=== PATIENT | male | born 1975 | race Caucasian/White ===

== ENCOUNTER 2019-05-16 04:45 | Observation (INO) | payer MEDICARE, MEDICAID ==
--- NOTE | 2019-05-16 06:10 | EDM.PDOC ---
ED HPI GENERAL MEDICAL PROBLEM - General Chief Complaint: Abdominal Pain Stated Complaint: ABDOMINAL PAIN Time Seen by Provider: 05/16/19 05:15 Source of Information: Reports: Patient History Limitations: Reports: No Limitations - History of Present Illness INITIAL COMMENTS - FREE TEXT/NARRATIVE: Pt is a 43 year old male presents to emergency room with severe abdominal pain which started at 2 AM today. Pt has his supper at 9 PM and went to bed.He woke up with severe abdominal pain around 2 am today and noted that his abdomen was bloated, so severe that he felt like his left lower quadrant hernia mesh was pushed. Since then he claims he has been burping very foul smelling burps on and off and feels nauseous. No vomiting. Pain has resolved since then gradually. Presently not in pain. No fever or chills. No heart burn, or dyspepsia. Pt claims that he has been fighting constipation for past 1 month now and he had taken bottle of Mag citrate last night. Onset: Today Onset Date: 05/16/19 Onset Time: 02:00 Location: Reports: Abdomen Quality: Reports: Ache Severity: Moderate Improves with: Reports: None Worsens with: Reports: None Associated Symptoms: Denies: Confusion, Chest Pain, Cough, Diaphoresis, Fever/ Chills, Headaches, Nausea/Vomiting, Rash, Seizure, Shortness of Breath, Syncope , Weakness - Related Data Allergies Allergy/AdvReac Type Severity Reaction Status Date / Time adalimumab [From Humira] Allergy Dizziness Verified 05/16/19 05:12 atenolol Allergy Swelling Verified 05/16/19 05:12 Iodinated Contrast Media Allergy Anaphylactic Verified 05/16/19 05:12 Shock doxycycline AdvReac Nausea Verified 05/16/19 05:12 rofecoxib [From Vioxx] AdvReac Mouth Sores Verified 05/16/19 05:12 Home Meds: Home Meds Albuterol [Ventolin HFA] 1 puff INH Q4HR PRN 07/30/16 [History] Fluticasone Propionate 1 spray TYRONE DAILY PRN 07/30/16 [History] Amitriptyline [Elavil] 20 mg PO QPM 08/02/18 [History] Fluconazole [Diflucan] 200 mg PO ASDIRECTED 08/02/18 [History] Folic Acid 1 mg PO DAILY 08/02/18 [History] Levothyroxine Sodium [Levoxyl] 50 mcg PO ASDIRECTED 08/02/18 [History] Montelukast Sodium 10 mg PO DAILY 08/02/18 [History] Acetaminophen/HYDROcodone [[place] 325-10 MG] 1 tab PO Q4H PRN tablet 08/04/18 [ Rx] Cholecalciferol (Vitamin D3) [Vitamin D3] 1,000 unit PO DAILY 05/16/19 [History] Cyanocobalamin (Vitamin B12) [Vitamin B12] 100 mcg PO DAILY 05/16/19 [History] Diltiazem HCl [Dilt-XR] 120 mg PO DAILY 05/16/19 [History] InFLIXimab [Remicade] 100 mg IV ASDIRECTED 05/16/19 [History] Ketorolac [Toradol] 10 mg PO TID PRN 05/16/19 [History] Methotrexate 0.6 ml IM WEEKLY 05/16/19 [History] Omeprazole 40 mg PO DAILY 05/16/19 [History] ZOLMitriptan [Zolmitriptan] 5 mg PO ASDIRECTED PRN 05/16/19 [History] diphenhydrAMINE HCl [Benadryl] 50 mg PO Q8H PRN 05/16/19 [History] Past Medical History HEENT History: Reports: Impaired Vision, Sinusitis Cardiovascular History: Reports: Afib, Other (See Below) Other Cardiovascular History: Linx through [facility] Respiratory History: Reports: Asthma, Pneumonia, Recurrent, SOB Gastrointestinal History: Reports: GERD, Other (See Below) Other Gastrointestinal History: hernia Musculoskeletal History: Reports: Fracture Other Musculoskeletal History: ankylosing spondylitis, right arm (has [place]) fractured right orbital , shattered sinus cavity, broken ribs Neurological History: Reports: Concussion, Migraines Endocrine/Metabolic History: Reports: Hypothyroidism, Vitamin D Deficiency Other Endocrine/Metabolic History: partial thyroidectomy due to cancer Oncologic (Cancer) History: Reports: None, Thyroid, Other (See Below) Other Oncologic History: knee Dermatologic History: Reports: Other (See Below) Other Dermatologic History: rash chronic - Infectious Disease History Infectious Disease History: Reports: Chicken Pox - Past Surgical History HEENT Surgical History: Reports: Adenoidectomy, Tonsillectomy, Other (See Below) Other HEENT Surgeries/Procedures: SHOSHONE-PAIUTE Cardiovascular Surgical History: Reports: None GI Surgical History: Reports: Hernia, Inguinal, Other (See Below) Other GI Surgeries/Procedures: Ulcerative colitis Endocrine Surgical History: Reports: Thyroidectomy Neurological Surgical History: Reports: None Musculoskeletal Surgical History: Reports: Other (See Below) Other Musculoskeletal Surgeries/Procedures:: 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 Denies : Black Stool, Hematemesis, Hematochezia, Vomiting : Denies: Dysuria, Flank Pain, Frequency Musculoskeletal: Denies: Joint Pain, Joint Swelling Skin: Denies: Bruising, Pruritis, Rash ED EXAM, GENERAL - Physical Exam Exam: See Below Exam Limited By: No Limitations General Appearance: Alert, WD/WN, No Apparent Distress Eye Exam: Bilateral Eye: EOMI, PERRL Ears: Normal External Exam, Normal Canal, Hearing Grossly Normal, Normal TMs Ear Exam: Bilateral Ear: Auricle Normal, Canal Normal, TM normal Nose: Normal Inspection, Normal Mucosa, No Blood Throat/Mouth: Normal Inspection, Normal Lips, Normal Teeth, Normal Gums, Normal Oropharynx, Normal Voice, No Airway Compromise Head: Atraumatic, Normocephalic Neck: Normal Inspection, Supple, Non-Tender, Full Range of Motion Respiratory/Chest: No Respiratory Distress, Lungs Clear, Normal Breath Sounds, No Accessory Muscle Use, Chest Non-Tender Cardiovascular: Normal Peripheral Pulses, Regular Rate, Rhythm, No Edema, No Gallop, No JVD, No Murmur, No Rub GI/Abdominal: Non-Tender, Distended (in the upper abdomen), Abnormal Bowel Sounds (hypoactive BS). No: Guarding, Rigid, Rebound, Mass Back Exam: Normal Inspection, Full Range of Motion, NT Extremities: Normal Inspection, Normal Range of Motion, Non-Tender, Normal Capillary Refill, No Pedal Edema Neurological: Alert, Oriented, CN II-XII Intact, Normal Cognition, Normal Gait, Normal Reflexes, No Motor/Sensory Deficits Course - Vital Signs Text/Narrative:: In the emergency room, patient is asymptomatic. His Vitals are stable. On exam, there is upper abdominal distension.Abdomen is non-tender presently. No LLQ tenderness. He does have slightly hypoactive bowel sounds. I did get CBC, CMP and CT abdomen without contrast to rule out bowel obstruction V/s diverticulitis. Pt's CBC is elevated at 19.6 with 89% neutrophils. His CMP is normal. His CT abdomen shows prominent stomach with gastric retention of food content. Patient claims his last meal was at 9 PM. There is food still present in the stomach after 10 hrs. Also he claims he has been having foul smelling belches. He might have some gastric motility disorder too,but, this might be new or non-specific. CT shows possible gastroenteritis with colonic air fluid levels, OR might have early colonic obstruction too. Cannot rule out. Hence I have admitted patient to hospital for observation. Will start him on cipro and flagyl IV as his white count is elevated. He did receive reglan 10mg. Did try to place NG tube to decompress stomach, but patient has had DNS and attempt failed. As patient is asymptomatic, will keep him NPO. Will monitor him in the hospital over the day. Repeat Abdominal X-ray upright and CBC in the evening. If the air fluid levels have resolved and if he is feeling better, will discharge him today evening. Last Recorded V/S: Last Vital Signs Temp 98.2 F 05/16/19 05:14 Pulse 83 05/16/19 05:14 Resp 16 05/16/19 05:14 BP 135/99 H 05/16/19 05:14 Pulse Ox 98 05/16/19 05:14 - Orders/Labs/Meds Orders: Active Orders 24 hr Category Date Time Status Patient Status [ADT] Routine ADT 05/16/19 06:52 Ordered Height and Weight [RC] UPON Care 05/16/19 06:52 Ordered Intake and Output [RC] QSHIFT Care 05/16/19 06:53 Ordered Oxygen Therapy [RC] PRN Care 05/16/19 06:52 Ordered VTE/DVT Education [RC] Per Unit Routine Care 05/16/19 06:52 Ordered Vital Signs [RC] Q4H Care 05/16/19 06:52 Ordered Nothing per Oral Now Diet [DIET] Diet 05/16/19 Breakfast Ordered Abdomen Pelvis wo Cont [CT] Stat Exams 05/16/19 05:36 Taken CBC WITH AUTO DIFF [HEME] Routine Lab 05/16/19 16:52 Ordered Ciprofloxacin in D5W [Cipro in D5W 400 MG/200 ML] 400 Med 05/16/19 08:00 Ordered mg Premix Bag 1 bag IV Q12HR Metoclopramide [Reglan] Med 05/16/19 07:00 Once 10 mg IV ONETIME ONE Sodium Chloride 0.9% @ 125 MLS/HR (1000ml) Med 05/16/19 07:00 Ordered Sodium Chloride 0.9% [Normal Saline] 1,000 ml IV ASDIRECTED Sodium Chloride 0.9% [Saline Flush] Med 05/16/19 06:52 Ordered 10 ml FLUSH ASDIRECTED PRN metroNIDAZOLE/Normal Saline [Flagyl 500 MG in NS 100 ML Med 05/16/19 07:00 Ordered ] 500 mg Premix Bag 1 bag IV Q8H Peripheral IV Insertion Adult [OM.PC] Routine Oth 05/16/19 06:52 Ordered Resuscitation Status Routine Resus Stat 05/16/19 06:52 Ordered Labs: Laboratory Tests 05/16/19 05/16/19 Range/Units 05:45 05:45 WBC 19.7 H D (4.0-11.0) K/uL RBC 4.95 (4.50-6.50) M/uL Hgb 15.2 (13.0-18.0) g/dL Hct 44.4 (40.0-54.0) % MCV 90 (76-96) fL MCH 30.7 (27.0-32.0) pg MCHC 34.2 (31.0-35.0) g/dL RDW 14.0 (11.0-16.0) % Plt Count 274 (150-400) K/uL MPV 10.6 H (6.0-10.0) fL Neut % (Auto) 89.0 H (45.0-70.0) % Lymph % (Auto) 5.2 L (20.0-40.0) % Wilkin % (Auto) 5.7 (3.0-10.0) % Eos % (Auto) 0.0 L (1.0-5.0) % Baso % (Auto) 0.1 (0.0-0.5) % Neut # (Auto) 17.54 H (2.00-7.50) K/uL Lymph # (Auto) 1.02 L (1.50-4.00) K/uL [place]kin # (Auto) 1.12 H (0.20-0.80) K/uL Eos # (Auto) 0.00 L (0.04-0.40) K/uL Baso # (Auto) 0.01 L (0.02-0.10) K/uL Sodium 143 (136-145) mmol/L Potassium 3.7 (3.5-5.1) mmol/L Chloride 108 H (98-107) mmol/L Carbon Dioxide 23.7 D (21.0-32.0) mmol/L Anion Gap 15.0 (5.0-15.0) mmol/L BUN 20 D (8-26) mg/dL Creatinine 0.87 (0.70-1.30) mg/dL Est Cr Clr Drug Dosing TNP Estimated GFR (MDRD) > 60 (>60) MLS/MIN BUN/Creatinine Ratio 23.0 (6-25) Glucose 127 H (74-100) mg/dL Calcium 8.6 (8.5-10.1) mg/dL Total Bilirubin 0.5 (0.0-1.0) mg/dL AST 12 L (15-37) U/L ALT 22 (12-78) U/L Alkaline Phosphatase 60 (46-116) U/L Total Protein 6.1 L (6.4-8.2) g/dL Albumin 3.4 (3.4-5.0) g/dL Globulin 2.7 (2.2-4.2) g/dL Albumin/Globulin Ratio 1.3 (0.8-2.0) Departure - Departure Time of Disposition: 07:00 Disposition: Refer to Observation Condition: Fair Clinical Impression: Leucocytosis, Gastroenteritis - Discharge Information *PRESCRIPTION DRUG MONITORING PROGRAM REVIEWED*: Not Applicable *COPY OF PRESCRIPTION DRUG MONITORING REPORT IN PATIENT TRISTIN: Not Applicable Referrals: PCP,None [Primary Care Provider] - Forms: ED Department Discharge, ED Return to Work/School Form - Problem List & Annotations (1) Gastroenteritis SNOMED Code(s): 62217879 Code(s): K52.9 - NONINFECTIVE GASTROENTERITIS AND COLITIS, UNSPECIFIED Status: Acute Current Visit: Yes (2) Leucocytosis SNOMED Code(s): 787107617, 114382619 Code(s): D72.829 - ELEVATED WHITE BLOOD CELL COUNT, UNSPECIFIED Status: Acute Current Visit: Yes - Problem List Review Problem List Initiated/Reviewed/Updated: Yes - My Orders Last 24 Hours: My Active Orders 05/16/19 05:36 Abdomen Pelvis wo Cont [CT] Stat 05/16/19 06:52 Patient Status [ADT] Routine Height and Weight [RC] UPON Oxygen Therapy [RC] PRN VTE/DVT Education [RC] Per Unit Routine Vital Signs [RC] Q4H Sodium Chloride 0.9% [Saline Flush] 10 ml FLUSH ASDIRECTED PRN Peripheral IV Insertion Adult [OM.PC] Routine Resuscitation Status Routine 05/16/19 06:53 Intake and Output [RC] QSHIFT 05/16/19 07:00 Metoclopramide [Reglan] 10 mg IV ONETIME ONE Sodium Chloride 0.9% @ 125 MLS/HR (1000ml) Sodium Chloride 0.9% [Normal Saline] 1,000 ml IV ASDIRECTED metroNIDAZOLE/Normal Saline [Flagyl 500 MG in NS 100 ML] 500 mg Premix Bag 1 bag IV Q8H 05/16/19 08:00 Ciprofloxacin in D5W [Cipro in D5W 400 MG/200 ML] 400 mg Premix Bag 1 bag IV Q12HR 05/16/19 16:52 CBC WITH AUTO DIFF [HEME] Routine 05/16/19 Breakfast Nothing per Oral Now Diet [DIET] - Assessment/Plan Last 24 Hours: My Active Orders 05/16/19 05:36 Abdomen Pelvis wo Cont [CT] Stat 05/16/19 06:52 Patient Status [ADT] Routine Height and Weight [RC] UPON Oxygen Therapy [RC] PRN VTE/DVT Education [RC] Per Unit Routine Vital Signs [RC] Q4H Sodium Chloride 0.9% [Saline Flush] 10 ml FLUSH ASDIRECTED PRN Peripheral IV Insertion Adult [OM.PC] Routine Resuscitation Status Routine 05/16/19 06:53 Intake and Output [RC] QSHIFT 05/16/19 07:00 Metoclopramide [Reglan] 10 mg IV ONETIME ONE Sodium Chloride 0.9% @ 125 MLS/HR (1000ml) Sodium Chloride 0.9% [Normal Saline] 1,000 ml IV ASDIRECTED metroNIDAZOLE/Normal Saline [Flagyl 500 MG in NS 100 ML] 500 mg Premix Bag 1 bag IV Q8H 05/16/19 08:00 Ciprofloxacin in D5W [Cipro in D5W 400 MG/200 ML] 400 mg Premix Bag 1 bag IV Q12HR 05/16/19 16:52 CBC WITH AUTO DIFF [HEME] Routine 05/16/19 Breakfast Nothing per Oral Now Diet [DIET] Assessment:: Acute abdominal pain Gastroenteritis with leucocytosis Plan: In the emergency room, patient is asymptomatic. His Vitals are stable. On exam, there is upper abdominal distension.Abdomen is non-tender presently. No LLQ tenderness. He does have slightly hypoactive bowel sounds. I did get CBC, CMP and CT abdomen without contrast to rule out bowel obstruction V/s diverticulitis. Pt's CBC is elevated at 19.6 with 89% neutrophils. His CMP is normal. His CT abdomen shows prominent stomach with gastric retention of food content. Patient claims his last meal was at 9 PM. There is food still present in the stomach after 10 hrs. Also he claims he has been having foul smelling belches. He might have some gastric motility disorder too,but, this might be new or non-specific. CT shows possible gastroenteritis with colonic air fluid levels, OR might have early colonic obstruction too. Cannot rule out. Hence I have admitted patient to hospital for observation. Will start him on cipro and flagyl IV as his white count is elevated. He did receive reglan 10mg. Did try to place NG tube to decompress stomach, but patient has had DNS and attempt failed. As patient is asymptomatic, will keep him NPO. Will monitor him in the hospital over the day. Repeat Abdominal X-ray upright and CBC in the evening. If the air fluid levels have resolved and if he is feeling better, will discharge him today evening.
[2019-05-16] MEDS ORDERED: Sodium Chloride 0.9% 10 ML Syringe FLUSH PRN (06:52)
[2019-05-16] MEDS ORDERED: Metoclopramide 10 MG/2 ML SDV IV ONE (07:00)
[2019-05-16] MEDS ORDERED: metroNIDAZOLE/Normal Saline 100 ML ONE ×3 (07:20→22:40)
[2019-05-16] MEDS ORDERED: Ciprofloxacin in D5W 200 ML ONE ×2 (07:20→20:28)
[2019-05-16] MEDS: metroNIDAZOLE/Normal Saline 500 MG in Premix Bag 1 BAG IV SCH ×3 (07:36→23:38)
--- NOTE | 2019-05-16 07:57 | CT ---
DATE OF SERVICE: 05/16/19 CLINICAL DATA: abdominal pain UNENHANCED ABDOMEN AND PELVIC CT: Multislice acquisition through the abdomen and pelvis without IV or oral contrast was performed. Comparison is made to a prior unenhanced abdomen and pelvic CT dated 04/18/19. There is a linear density in the left lung base consistent with linear atelectasis or fibrosis. The lung bases are otherwise clear. The unenhanced liver appears normal. No focal hepatic lesions. The gallbladder appears normal. The spleen appears normal. The pancreas appears normal. The right and left adrenals appear normal. The right and left kidneys appear normal. No nephrocalcinosis or nephrolithiasis. No hydronephrosis or hydroureter. The bladder is partially fluid-filled. It appears normal. The prostate is mildly enlarged. There is fluid with scattered air-fluid levels throughout the colon. It is not distended. Colitis should be considered. The stomach is gas and debris-filled and moderately distended. The possibility of a gastric outlet obstruction should be considered. No free air. No free fluid. No dilated loops of bowel. No adenopathy. No aortic aneurysm. [id number] MTDD
[2019-05-16] MEDS: Ciprofloxacin in D5W 400 MG in Premix Bag 1 BAG IV SCH ×4 (08:42→20:37)
--- NOTE | 2019-05-16 16:37 | PCM.DCSUM1 ---
Discharge Summary - Hospital Course Free Text/Narrative:: Pt presented with acute upper abdominal pain with distension. His Workup showed gastroenteritis with air fluid level in the colon, with leucocytosis of 19.6 K. Hence patient was admitted to monitor closely t make sure he was developing bowel obstruction or acute abdominal infection. Pt was kept NPO and started in IV NS at 125cc/hr. Pt has had 3 episodes of small loose watery stools. He claims he is feeling better. No more nausea or vomiting since admission. HE is feeling hungry. The repeat Abdominal Xray upright is negative for air fluids levels. His CBC shows white count of . Pt reassured that he basically has gastroenteritis. His IV fluids have been discontinued. Discharged home of oral cipro 500mg BID and flagyl 500mg BID for 1 wk. Advised soft diet. Avoid meat and mild products until loose stools resolve. Brief History: Pt presented to emergency room with sudden onset of severe upper abdominal pain. Pt was admitted for close monitoring of his symptoms. Kindly see H&P for details. Diagnosis: Stroke: No - Discharge Data Discharge Date: 05/16/19 Discharge Disposition: Home, Self-Care 01 Condition: Good - Referral to Home Health Primary Care Physician: PCP None - Discharge Diagnosis/Problem(s) (1) Gastroenteritis SNOMED Code(s): 34382676 ICD Code: K52.9 - NONINFECTIVE GASTROENTERITIS AND COLITIS, UNSPECIFIED Status: Acute Current Visit: Yes (2) Leucocytosis SNOMED Code(s): 810087143, 962765708 ICD Code: D72.829 - ELEVATED WHITE BLOOD CELL COUNT, UNSPECIFIED Status: Acute Current Visit: Yes - Patient Instructions Diet: GI Soft/Low Residue/Low Fiber Fluid Restriction: 1500 mL Activity: As Tolerated Driving: May Drive Today Showering/Bathing: May Shower - Discharge Plan *PRESCRIPTION DRUG MONITORING PROGRAM REVIEWED*: Not Applicable *COPY OF PRESCRIPTION DRUG MONITORING REPORT IN PATIENT TRISTIN: Not Applicable Home Medications: Home Meds Albuterol [Ventolin HFA] 1 puff INH Q4HR PRN 07/30/16 [History] Fluticasone Propionate 1 spray TYRONE DAILY PRN 07/30/16 [History] Amitriptyline [Elavil] 20 mg PO QPM 08/02/18 [History] Fluconazole [Diflucan] 200 mg PO ASDIRECTED 08/02/18 [History] Folic Acid 1 mg PO DAILY 08/02/18 [History] Levothyroxine Sodium [Levoxyl] 50 mcg PO ASDIRECTED 08/02/18 [History] Montelukast Sodium 10 mg PO DAILY 08/02/18 [History] Acetaminophen/HYDROcodone [[place] 325-10 MG] 1 tab PO Q4H PRN tablet 08/04/18 [ Rx] Cholecalciferol (Vitamin D3) [Vitamin D3] 1,000 unit PO DAILY 05/16/19 [History] Cyanocobalamin (Vitamin B12) [Vitamin B12] 100 mcg PO DAILY 05/16/19 [History] Diltiazem HCl [Dilt-XR] 120 mg PO DAILY 05/16/19 [History] InFLIXimab [Remicade] 100 mg IV ASDIRECTED 05/16/19 [History] Ketorolac [Toradol] 10 mg PO TID PRN 05/16/19 [History] Methotrexate 0.6 ml IM WEEKLY 05/16/19 [History] Omeprazole 40 mg PO DAILY 05/16/19 [History] ZOLMitriptan [Zolmitriptan] 5 mg PO ASDIRECTED PRN 05/16/19 [History] diphenhydrAMINE HCl [Benadryl] 50 mg PO Q8H PRN 05/16/19 [History] Forms: ED Department Discharge, ED Return to Work/School Form Referrals: PCP,None [Primary Care Provider] - - Discharge Summary/Plan Comment DC Time >30 min.: Yes Discharge Summary/Plan Comment: Pt reassured that he basically has gastroenteritis. His IV fluids have been discontinued. Discharged home of oral cipro 500mg BID and flagyl 500mg BID for 1 wk. Advised soft diet. Avoid meat and mild products until loose stools resolve. Followup with primary care provider early next week for recheck. - General Info Date of Service: 05/16/19 Functional Status: Reports: Pain Controlled, Tolerating Diet, Urinating - Review of Systems General: Denies: Fever, Weakness, Fatigue HEENT: Denies: Sore Throat, Rhinitis Pulmonary: Denies: Cough, Sputum Cardiovascular: Denies: Chest Pain, Lightheadedness Gastrointestinal: Reports: Diarrhea. Denies: Abdominal Pain, Constipation, Nausea, Vomiting Genitourinary: Denies: Frequency, Pain Musculoskeletal: Denies: Joint Pain, Joint Swelling Skin: Denies: Bruising, Pruritis, Rash - Patient Data Vitals - Most Recent: Last Vital Signs Temp 98.6 F 05/16/19 14:52 Pulse 72 05/16/19 14:52 Resp 16 05/16/19 14:52 BP 134/83 05/16/19 14:52 Pulse Ox 100 05/16/19 14:52 Weight - Most Recent: 74.571 kg Lab Results - Last 24 hrs: Laboratory Results - last 24 hr 05/16/19 05/16/19 Range/Units 05:45 05:45 WBC 19.7 H D (4.0-11.0) K/uL RBC 4.95 (4.50-6.50) M/uL Hgb 15.2 (13.0-18.0) g/dL Hct 44.4 (40.0-54.0) % MCV 90 (76-96) fL MCH 30.7 (27.0-32.0) pg MCHC 34.2 (31.0-35.0) g/dL RDW 14.0 (11.0-16.0) % Plt Count 274 (150-400) K/uL MPV 10.6 H (6.0-10.0) fL Neut % (Auto) 89.0 H (45.0-70.0) % Lymph % (Auto) 5.2 L (20.0-40.0) % Coleman % (Auto) 5.7 (3.0-10.0) % Eos % (Auto) 0.0 L (1.0-5.0) % Baso % (Auto) 0.1 (0.0-0.5) % Neut # (Auto) 17.54 H (2.00-7.50) K/uL Lymph # (Auto) 1.02 L (1.50-4.00) K/uL Coleman # (Auto) 1.12 H (0.20-0.80) K/uL Eos # (Auto) 0.00 L (0.04-0.40) K/uL Baso # (Auto) 0.01 L (0.02-0.10) K/uL Sodium 143 (136-145) mmol/L Potassium 3.7 (3.5-5.1) mmol/L Chloride 108 H (98-107) mmol/L Carbon Dioxide 23.7 D (21.0-32.0) mmol/L Anion Gap 15.0 (5.0-15.0) mmol/L BUN 20 D (8-26) mg/dL Creatinine 0.87 (0.70-1.30) mg/dL Est Cr Clr Drug Dosing TNP Estimated GFR (MDRD) > 60 (>60) MLS/MIN BUN/Creatinine Ratio 23.0 (6-25) Glucose 127 H (74-100) mg/dL Calcium 8.6 (8.5-10.1) mg/dL Total Bilirubin 0.5 (0.0-1.0) mg/dL AST 12 L (15-37) U/L ALT 22 (12-78) U/L Alkaline Phosphatase 60 (46-116) U/L Total Protein 6.1 L (6.4-8.2) g/dL Albumin 3.4 (3.4-5.0) g/dL Globulin 2.7 (2.2-4.2) g/dL Albumin/Globulin Ratio 1.3 (0.8-2.0) Med Orders - Current: Current Medications Ciprofloxacin/Dextrose 400 mg/ (Premix) 200 mls @ 200 mls/hr IV Q12HR [facility] Last Admin: 05/16/19 08:42 Dose: 200 mls/hr Metronidazole 500 mg/ Premix 100 mls @ 100 mls/hr IV Q8H [facility] Last Admin: 05/16/19 07:36 Dose: 100 mls/hr Sodium Chloride (Normal Saline) 1,000 mls @ 125 mls/hr IV ASDIRECTED [facility] Sodium Chloride (Saline Flush) 10 ml FLUSH ASDIRECTED PRN PRN Reason: Keep Vein Open Discontinued Medications Metronidazole (Flagyl 500 Mg In Ns 100 Ml) Confirm Administered Dose 100 mls @ as directed .ROUTE .STK-MED ONE Stop: 05/16/19 07:21 Ciprofloxacin/Dextrose (Cipro In D5w 400 Mg/200 Ml) Confirm Administered Dose 200 mls @ as directed .ROUTE .STK-MED ONE Stop: 05/16/19 07:21 Metoclopramide HCl (Reglan) 10 mg IV ONETIME ONE Stop: 05/16/19 07:01 Last Admin: 05/16/19 07:36 Dose: 10 mg - Exam General: Reports: Alert, Oriented HEENT: Reports: Pupils Equal, Pupils Reactive, EOMI, Mucous Membr. Moist/[place] Neck: Reports: Supple Lungs: Reports: Clear to Auscultation, Normal Respiratory Effort Cardiovascular: Reports: Regular Rate, Regular Rhythm GI/Abdominal Exam: Normal Bowel Sounds, Soft, Non-Tender, No Organomegaly, No Distention, No Abnormal Bruit, No Mass, Pelvis Stable Back Exam: Reports: Normal Inspection, Full Range of Motion Extremities: Normal Inspection, Normal Range of Motion, Non-Tender, No Pedal Edema, Normal Capillary Refill
[2019-05-16] MEDS: Sodium Chloride 0.9% 1,000 ML IV SCH (17:01)
[2019-05-16] MEDS ORDERED: Ondansetron 4 MG/2 ML SDV IVPUSH SCH (21:00)
[2019-05-16] MEDS ORDERED: Ondansetron 4 MG/2 ML SDV IVPUSH PRN (21:07)
[2019-05-17] MEDS: Sodium Chloride 0.9% 1,000 ML IV SCH (03:40)
[2019-05-17] MEDS ORDERED: metroNIDAZOLE/Normal Saline 100 ML ONE (07:38)
[2019-05-17] MEDS: metroNIDAZOLE/Normal Saline 500 MG in Premix Bag 1 BAG IV SCH (07:43)
[2019-05-17] MEDS: Ciprofloxacin in D5W 400 MG in Premix Bag 1 BAG IV SCH ×2 (09:30)
--- NOTE | 2019-05-17 11:38 | CR ---
DATE OF SERVICE: 05/16/19 CLINICAL DATA: followup from morning CT SUPINE AND UPRIGHT ABDOMEN: No free air. There are scattered air-fluid levels in the right colon and distal small bowel. Enterocolitis should be considered. No distended loops of bowel. [id number] MTDD
[2019-05-17 11:44] VITALS: BP 129/78; PULSE 59
--- NOTE | 2019-05-17 15:20 | PCM.DCSUM1 ---
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 On workup his White count was elevated at 19K and also his CT abdomen showed colonic air fluids levels. As patient has elevated white count with distended abdomen and pain, was admitted for monitoring and to make sure he is not getting into early bowel obstruction. Pt was kept NPO and started on IV NS at 125cc/hr. Also for his elevated white count, i did start him on cipro 500mg BID and flagyl 400mg TID IV.HE did receive reglan 10mg IV on admission as he had gastric retention of food material. Pt had uneventful day, and later half of the day had 3 bouts of semiformed stool. On the evening of day1 as he was feeing better, I did repeat his white count which was up from 19K to 24 K. Hence patient was continued on Iv antibiotics for 24 hrs.Also patient was started on clear liquids in the evening and monitored over night. Day 2 : pt is feeling better. No abdominal pain. Clinical exam is normal. Vitals stable. His white count is down to 10K today. As patient has been tolerating oral diet and feeling better and his white count is back to normal, patient has been planned for discharge. Advised flagyl 500mg BID and Cipro 500mg BID for next 6 days. Avoid mild and meat products until done with antibiotics. Plenty of fluids and rest. Followup in clinic for recheck next week. Brief History: Presented to ER with severe abdominal pain. His white count was elevated and has air fluid level in colon. Admitted for observation. Kindly see H&P for details. Diagnosis: Stroke: No - Discharge Data Discharge Date: 05/17/19 Discharge Disposition: Home, Self-Care 01 Condition: Good - Referral to Home Health Primary Care Physician: PCP None - Discharge Diagnosis/Problem(s) (1) Gastroenteritis SNOMED Code(s): 25662258 ICD Code: K52.9 - NONINFECTIVE GASTROENTERITIS AND COLITIS, UNSPECIFIED Status: Acute (2) Leucocytosis SNOMED Code(s): 284736909, 963113417 ICD Code: D72.829 - ELEVATED WHITE BLOOD CELL COUNT, UNSPECIFIED Status: Acute - Patient Instructions Diet: GI Soft/Low Residue/Low Fiber Fluid Restriction: 1500 mL Activity: As Tolerated Driving: May Drive Today - Discharge Plan *PRESCRIPTION DRUG MONITORING PROGRAM REVIEWED*: Not Applicable *COPY OF PRESCRIPTION DRUG MONITORING REPORT IN PATIENT TRISTIN: Not Applicable Home Medications: Home Meds Albuterol [Ventolin HFA] 1 puff INH Q4HR PRN 07/30/16 [History] Fluticasone Propionate 1 spray TYRONE DAILY PRN 07/30/16 [History] Amitriptyline [Elavil] 20 mg PO QPM 08/02/18 [History] Fluconazole [Diflucan] 200 mg PO ASDIRECTED 08/02/18 [History] Folic Acid 1 mg PO DAILY 08/02/18 [History] Levothyroxine Sodium [Levoxyl] 50 mcg PO ASDIRECTED 08/02/18 [History] Montelukast Sodium 10 mg PO DAILY 08/02/18 [History] Acetaminophen/HYDROcodone [[place] 325-10 MG] 1 tab PO Q4H PRN tablet 08/04/18 [ Rx] Cholecalciferol (Vitamin D3) [Vitamin D3] 1,000 unit PO DAILY 05/16/19 [History] Cyanocobalamin (Vitamin B12) [Vitamin B12] 100 mcg PO DAILY 05/16/19 [History] Diltiazem HCl [Dilt-XR] 120 mg PO DAILY 05/16/19 [History] InFLIXimab [Remicade] 100 mg IV ASDIRECTED 05/16/19 [History] Ketorolac [Toradol] 10 mg PO TID PRN 05/16/19 [History] Methotrexate 0.6 ml IM WEEKLY 05/16/19 [History] Omeprazole 40 mg PO DAILY 05/16/19 [History] ZOLMitriptan [Zolmitriptan] 5 mg PO ASDIRECTED PRN 05/16/19 [History] diphenhydrAMINE HCl [Benadryl] 50 mg PO Q8H PRN 05/16/19 [History] Patient Handouts: Ciprofloxacin tablets, Metronidazole tablets or capsules Forms: ED Department Discharge, ED Return to Work/School Form Referrals: PCP,None [Primary Care Provider] - - Discharge Summary/Plan Comment DC Time >30 min.: Yes Discharge Summary/Plan Comment: Advised flagyl 500mg BID and Cipro 500mg BID for next 6 days. Avoid mild and meat products until done with antibiotics. Plenty of fluids and rest. Followup in clinic for recheck next week. - General Info Date of Service: 05/17/19 Functional Status: Reports: Pain Controlled, Tolerating Diet, Ambulating, Urinating - Review of Systems General: Denies: Fever, Weakness HEENT: Denies: Sinus Congestion, Rhinitis Pulmonary: Denies: Sputum, Hemoptysis Cardiovascular: Denies: Chest Pain, Lightheadedness Gastrointestinal: Denies: Abdominal Pain, Difficulty Swallowing, Nausea, Vomiting Genitourinary: Denies: Dysuria, Frequency Musculoskeletal: Denies: Joint Pain, Joint Swelling Skin: Denies: Bruising, Pruritis, Rash Neurological: Denies: Headache, Numbness Psychiatric: Denies: Depression - Patient Data Vitals - Most Recent: Last Vital Signs Temp 98.1 F 05/17/19 08:00 Pulse 59 L 05/17/19 08:00 Resp 16 05/17/19 03:33 BP 129/78 05/17/19 08:00 Pulse Ox 98 05/17/19 08:00 Weight - Most Recent: 70.307 kg I&O - Last 24 hours: Intake & Output 05/17/19 05/17/19 05/17/19 06:59 14:59 22:59 Intake Total 2281 Output Total 1950 Balance 331 Lab Results - Last 24 hrs: Laboratory Results - last 24 hr 05/16/19 05/17/19 Range/Units 16:10 07:45 WBC 24.4 H* D 10.6 D (4.0-11.0) K/uL RBC 4.70 4.48 L (4.50-6.50) M/uL Hgb 14.4 13.7 (13.0-18.0) g/dL Hct 42.9 41.4 (40.0-54.0) % MCV 91 92 (76-96) fL MCH 30.6 30.6 (27.0-32.0) pg MCHC 33.6 33.1 (31.0-35.0) g/dL RDW 13.9 13.9 (11.0-16.0) % Plt Count 236 215 (150-400) K/uL MPV 10.4 H 10.2 H (6.0-10.0) fL Neut % (Auto) 88.4 H 75.3 H (45.0-70.0) % Lymph % (Auto) 5.7 L 16.0 L (20.0-40.0) % [place] % (Auto) 4.9 7.7 (3.0-10.0) % Eos % (Auto) 0.9 L 0.9 L (1.0-5.0) % Baso % (Auto) 0.1 0.1 (0.0-0.5) % Neut # (Auto) 21.59 H 8.01 H (2.00-7.50) K/uL Lymph # (Auto) 1.39 L 1.70 (1.50-4.00) K/uL [place] # (Auto) 1.19 H 0.82 H (0.20-0.80) K/uL Eos # (Auto) 0.21 0.10 (0.04-0.40) K/uL Baso # (Auto) 0.02 0.01 L (0.02-0.10) K/uL Med Orders - Current: Current Medications Discontinued Medications Ciprofloxacin/Dextrose 400 mg/ (Premix) 200 mls @ 200 mls/hr IV Q12HR [facility] Last Admin: 05/17/19 09:30 Dose: Not Given Metronidazole 500 mg/ Premix 100 mls @ 100 mls/hr IV Q8H [facility] Last Admin: 05/17/19 07:43 Dose: 100 mls/hr Sodium Chloride (Normal Saline) 1,000 mls @ 125 mls/hr IV ASDIRECTED [facility] Last Admin: 05/17/19 03:40 Dose: 125 mls/hr Metronidazole (Flagyl 500 Mg In Ns 100 Ml) Confirm Administered Dose 100 mls @ as directed .ROUTE .[facility] ONE Stop: 05/16/19 07:21 Last Admin: 05/16/19 20:04 Dose: Not Given Ciprofloxacin/Dextrose (Cipro In D5w 400 Mg/200 Ml) Confirm Administered Dose 200 mls @ as directed .ROUTE .[facility] ONE Stop: 05/16/19 07:21 Last Admin: 05/16/19 20:04 Dose: Not Given Metronidazole (Flagyl 500 Mg In Ns 100 Ml) Confirm Administered Dose 100 mls @ as directed .ROUTE .[facility] ONE Stop: 05/16/19 16:54 Last Admin: 05/16/19 17:11 Dose: Not Given Ciprofloxacin/Dextrose (Cipro In D5w 400 Mg/200 Ml) Confirm Administered Dose 200 mls @ as directed .ROUTE .[facility] ONE Stop: 05/16/19 20:29 Last Admin: 05/16/19 20:37 Dose: Not Given Metronidazole (Flagyl 500 Mg In Ns 100 Ml) Confirm Administered Dose 100 mls @ as directed .ROUTE .[facility] ONE Stop: 05/16/19 22:41 Last Admin: 05/16/19 22:47 Dose: Not Given Metronidazole (Flagyl 500 Mg In Ns 100 Ml) Confirm Administered Dose 100 mls @ as directed .ROUTE .[facility] ONE Stop: 05/17/19 07:39 Last Admin: 05/17/19 07:42 Dose: Not Given Metoclopramide HCl (Reglan) 10 mg IV ONETIME ONE Stop: 05/16/19 07:01 Last Admin: 05/16/19 07:36 Dose: 10 mg Ondansetron HCl (Zofran) 4 mg IVPUSH Q8H [facility] Last Admin: 05/16/19 21:07 Dose: Not Given Ondansetron HCl (Zofran) 4 mg IVPUSH Q8H PRN PRN Reason: Nausea/Vomiting Last Admin: 05/16/19 21:34 Dose: 4 mg Sodium Chloride (Saline Flush) 10 ml FLUSH ASDIRECTED PRN PRN Reason: Keep Vein Open - Exam General: Reports: Alert, Oriented HEENT: Reports: Pupils Equal, Pupils Reactive, EOMI, Mucous Membr. Moist/[place] Neck: Reports: Supple Lungs: Reports: Clear to Auscultation, Normal Respiratory Effort Cardiovascular: Reports: Regular Rate, Regular Rhythm GI/Abdominal Exam: Normal Bowel Sounds, Soft, Non-Tender, No Organomegaly, No Distention, No Abnormal Bruit, No Mass, Pelvis Stable Extremities: Normal Inspection, Normal Range of Motion, Non-Tender, No Pedal Edema, Normal Capillary Refill Skin: Reports: Warm, Dry, Intact
== END 2019-05-17 09:30 | disposition home or self-care (01) ==
LOC: LB.ED 04:45 → LB.MS 06:52
PROVIDERS: ADMIT Family Medicine; ATTEND Family Medicine
DX: K52.9 Noninfective gastroenteritis and colitis, unspecified (principal); D72.829 Elevated white blood cell count, unspecified; Z79.899 Other long term (current) drug therapy
CPT/HCPCS: 36415; 74018; 74176; 80053; 85025; 96365; 96366; 96367; 96375; 96376; 99285; G0378; J0744; J2405; J2765; J3490; J7030

== ENCOUNTER 2021-11-17 14:48 | Emergency (ER) | payer MEDICARE, MEDICAID ==
[2021-11-17 17:23] VITALS: BP 132/92; PULSE 75
== END 2021-11-17 18:50 | disposition home or self-care (01) ==
LOC: LB.ED 14:48
DX: R07.89 Other chest pain (principal); T37.3X5A Adverse effect of other antiprotozoal drugs, initial encounter; K21.9 Gastro-esophageal reflux disease without esophagitis; Z91.041 Radiographic dye allergy status; Z88.1 Allergy status to other antibiotic agents; Z88.8 Allergy status to other drugs, medicaments and biological substances; Z79.899 Other long term (current) drug therapy
CPT/HCPCS: 36415; 70450; 70490; 71250; 80053; 84484; 85025; 85379; 99285-25